=== PATIENT | male | born 1930 | race Caucasian/White ===

== ENCOUNTER 2018-01-17 21:34 | Observation (INO) | payer MEDICARE ==
[2018-01-17] MEDS ORDERED: solu-MEDROL 125 MG IV ONE (22:08)
[2018-01-17] MEDS ORDERED: Zithromax 500 MG/ 250 ML NaCl Premix 500 MG/250 ML IVPB IV STA (22:08)
[2018-01-17] MEDS ORDERED: DUONEB 0.5-3 MG/3 ml Neb IH ONE ×2 (22:08→22:18)
[2018-01-17] MEDS ORDERED: ROCEPHIN 1 Gm-D5w 50 ml Bag** 1 G/50 ML IVPB IV STA (22:08)
[2018-01-17] MEDS ORDERED: Rocephin 500 MG INJ** 500 MG in Sodium Chloride 0.9% 100 ML IVPB 100 ML IV ONE (22:08)
--- NOTE | 2018-01-17 22:21 | ERPHSYRPT ---
- History of Present Illness Time Seen by Provider: 01/17/18 22:05 Source: patient Exam Limitations: clinical condition Patient Subjective Stated Complaint: pt states he woke up short of breath and feeling weak. Triage Nursing Assessment: pt alert and oriented. answers questions approp. pt arrive per ambulance, transfer to stretcher per total assist of 3. respirations nonlabored with lungs cta. skin pink warm and dry. Physician History: PATIENT WITH A HISTORY OF COPD, ATRIAL FIBRILLATION, PRESENTLY ON ANTICOAGULANTS COUMADIN COMPLAINS OF DIFFICULTY BREATHING AND A PRODUCTIVE COUGH TONIGHT. DENIES FEVER, CHILLS, CHEST PAIN . Timing/Duration: intermittent Activities at Onset: activity Severity of Dyspnea-Max: moderate Severity of Dyspnea-Current: mild Possible Cause: occasional episodes Modifying Factors: Improves With: activity Associated Symptoms: cough, weakness, ankle swelling Allergies/Adverse Reactions: No Known Drug Allergies Allergy (Verified 01/17/18 22:08) Home Medications: Acetaminophen 325 mg [Tylenol 325 mg] 650 mg PO Q4H PRN PRN 01/17/18 [ History] Albuterol 2.5 mg/3 ml Neb [Proventil 2.5 mg/3 ml Neb] 2.5 mg IH Q4H PRN PRN 01/17/18 [History] Bisacodyl 5 mg [Dulcolax 5 mg] 5 mg PO DAILY PRN PRN 01/17/18 [History] Bismuth Subsalicylate [Pepto-Bismol] 262 mg PO BID 01/17/18 [History] Loperamide HCl 2 mg [Imodium 2 mg] 2 mg PO Q4HPRN PRN 01/17/18 [History] Losartan Potassium 50 mg [Cozaar 50 MG] 50 mg PO DAILY 01/17/18 [History] Omeprazole 20 MG [Prilosec 20 mg] 20 mg PO DAILY 01/17/18 [History] Oxybutynin Chloride Xl 5 mg [Ditropan XL 5 MG] 5 mg PO DAILY 01/17/18 [ History] Tamsulosin HCl 0.4 mg [Flomax 0.4 MG] 0.4 mg PO DAILY 01/17/18 [History] Vit A/Vit C/Vit E/Zinc/Copper [Preservision Areds Softgel] 1 each PO DAILY 01/17 [History] Warfarin Sodium 5 mg [Coumadin 5 MG] 5 mg PO DAILY 01/17/18 [History] Hx Tetanus, Diphtheria Vaccination/Date Given: Yes Hx Influenza Vaccination/Date Given: Yes Hx Pneumococcal Vaccination/Date Given: Yes Immunizations Up to Date: Yes - Review of Systems Constitutional: No Fever, No Chills Eyes: No Symptoms Ears, Nose, & Throat: No Symptoms Respiratory: Dyspnea, Dyspnea on Exertion (FRAUSTO), No Cough Cardiac: No Symptoms, No Chest Pain, No Edema, No Syncope Abdominal/Gastrointestinal: No Symptoms, No Abdominal Pain, No Nausea, No Vomiting, No Diarrhea Genitourinary Symptoms: No Symptoms, No Dysuria Musculoskeletal: No Back Pain, No Neck Pain Skin: Other (SWELLING IN LEGS), No Rash Neurological: No Dizziness, No Focal Weakness, No Sensory Changes Psychological: No Symptoms Endocrine: No Symptoms All Other Systems: Reviewed and Negative - Past Medical History Pertinent Past Medical History: Yes Cardiac History: Arrhythmia Respiratory History: COPD - Past Surgical History Past Surgical History: Yes Musculoskeletal: Joint Replacement, Orthopedic Surgery Other Surgical History: bilat knee replacements, back surgery, sinus surgery, skin graft to back - Social History Smoking Status: Former smoker Exposure to second hand smoke: No Drug Use: none Patient Lives Alone: No - Nursing Vital Signs Nursing Vital Signs: Initial Vital Signs Temperature 98.2 F 01/17/18 21:50 Pulse Rate 82 01/17/18 21:50 Respiratory Rate 18 01/17/18 21:50 Blood Pressure 137/79 01/17/18 21:50 O2 Sat by Pulse Oximetry 93 L 01/17/18 21:50 Pain Scale Pain Intensity 0 - Physical Exam General Appearance: no apparent distress, alert Eye Exam: PERRL/EOMI Neck Exam: normal inspection, supple Respiratory Exam: diminished breath sounds (NO WHEEZES OR RHONCHI) Cardiovascular/Chest Exam: normal heart sounds, regular rate/rhythm Abdominal/Gastrointestinal Exam: soft, No tenderness, No distention, No mass Extremity Exam: non-tender, normal range of motion, normal inspection, no calf tenderness, swelling (1+ PRETIBIAL EDEMA. 1+ PRESACRAL) Peripheral Pulses Exam: carotid (R): 2+, carotid (L): 2+, femoral (R): 2+, femoral (L): 2+, dorsalis-pedis (R): 2+, dorsalis-pedis (L): 2+ Neurologic Exam: alert, oriented x 3, cooperative, software design manager II-XII nml as tested, sensation nml, No motor deficits Skin Exam: normal color, warm, No dry SpO2 Interpretation: normal SpO2: 93 Oxygen Delivery: Room Air - Course EKG Interpreted by Me: RATE, Sinus Rhythm (rate of 81), NORMAL AXIS - Radiology Exams Chest X-ray Interpretation: Interpreted by me (COPD WITH INTERSTITIAL SCARRING, NO INFILTRATES) Ordered Tests: Active Orders 24 hr Category Date Time Status EKG-ER Only STAT Care 01/17/18 22:08 Active Oxygen-ED Only VENTI-MASK 35% Care 01/17/18 22:08 Active CHEST 1 VIEW (PORTABLE) Stat Exams 01/17/18 22:09 Ordered BLOOD CULTURE Stat Lab 01/17/18 22:08 Ordered CBC W DIFF Stat Lab 01/17/18 22:10 Completed CMP Stat Lab 01/17/18 22:10 Completed MAGNESIUM Stat Lab 01/17/18 22:10 Completed Manual Differential NC Stat Lab 01/17/18 22:10 Completed NT PRO BNP Stat Lab 01/17/18 22:10 Completed PROTIME WITH INR Stat Lab 01/17/18 22:10 Received TROPONIN Q3H Lab 01/17/18 22:10 Completed TROPONIN Q3H Lab 01/18/18 01:15 Ordered TROPONIN Q3H Lab 01/18/18 04:15 Ordered TROPONIN Q3H Lab 01/18/18 07:15 Ordered TROPONIN Q3H Lab 01/18/18 10:15 Ordered Respiratory Nebulizer STAT RT 01/17/18 22:11 Completed Respiratory Therapy Assessment DAILY RT 01/17/18 22:27 Active Respiratory Therapy Consult ONCE RT 01/17/18 22:27 Completed Medication Summary Generic Name Dose Route Start Last Admin Trade Name Freq PRN Reason Stop Dose Admin Ceftriaxone Sodium 500 mg/ 100 mls @ 100 mls/hr 01/17/18 22:08 Sodium Chloride IV 01/17/18 23:07 STAT ONE Azithromycin 500 mg in 250 mls @ 250 mls/hr 01/17/18 22:08 Zithromax 500 Mg/ 250 Ml Nacl Premix IV 01/17/18 23:07 STAT STA Discontinued Medications Generic Name Dose Route Start Last Admin Trade Name Sofia PRN Reason Stop Dose Admin Albuterol/Ipratropium 3 ml 01/17/18 22:08 01/17/18 22:20 Duoneb 0.5-3 Mg/3 Ml Neb IH 01/17/18 22:09 3 ml STAT ONE Administration Albuterol/Ipratropium Confirm 01/17/18 22:18 Duoneb 0.5-3 Mg/3 Ml Neb Administered 01/17/18 22:19 Dose 3 ml IH .STK-MED ONE Ceftriaxone Sodium/Dextrose 1 g in 50 mls @ 100 mls/hr 01/17/18 22:08 22:40 Rocephin 1 Gm-D5w 50 Ml Bag IV 01/17/18 22:37 100 ml/hr STAT STA 100 mls/hr Administration Azithromycin Confirm 01/17/18 22:23 Zithromax 500 Mg/ 250 Ml Nacl Premix Administered 01/17/18 22:24 Dose 500 mg in 250 mls @ ud IV .STK-MED ONE Ceftriaxone Sodium/Dextrose Confirm 01/17/18 22:23 Rocephin 1 Gm-D5w 50 Ml Bag Administered 01/17/18 22:24 Dose 1 g in 50 mls @ ud IV .STK-MED ONE Methylprednisolone Sodium Succinate 125 mg 01/17/18 22:08 01/17/18 22:40 Solu-Medrol 125 Mg IV 01/17/18 22:09 125 mg STAT ONE Administration Methylprednisolone Sodium Succinate Confirm 01/17/18 22:23 Solu-Medrol 125 Mg Administered 01/17/18 22:24 Dose 125 mg .ROUTE .STK-MED ONE Lab/Rad Data: Laboratory Result Diagrams 01/17/18 22:10 01/17/18 22:10 Laboratory Results 01/17/18 01/17/18 01/17/18 Range/Units 22:10 22:10 22:10 WBC (4.0-10.5) K/mm3 RBC (4.1-5.6) M/mm3 Hgb (12.5-18.0) gm/dl Hct (42-50) % MCV (78-100) fl MCH (26-32) pg MCHC (32-36) g/dl RDW (11.5-14.0) % Plt Count (150-450) K/mm3 MPV (6-9.5) fl Sodium 141 (137-145) mmol/L Potassium 4.3 (3.5-5.1) mmol/L Chloride 104 (98-107) mmol/L Carbon Dioxide 26 (22-30) mmol/L Anion Gap 15.5 H (5-15) MEQ/L BUN 21 H (9-20) mg/dL Creatinine 0.99 (0.66-1.25) mg/dL Estimated GFR > 60.0 ML/MIN Glucose 116 H (74-106) mg/dL Calcium 9.2 (8.4-10.2) mg/dL Magnesium 2.3 (1.6-2.3) mg/dL Total Bilirubin 0.20 (0.2-1.3) mg/dL AST 20 (17-59) U/L ALT 14 (0-50) U/L Alkaline Phosphatase 74 (38-126) U/L Troponin I < 0.012 (0.000-0.034) ng/mL NT-Pro-B Natriuret Pep 159 (0-1800) pg/mL Serum Total Protein 7.4 (6.3-8.2) g/dL Albumin 4.0 (3.5-5.0) g/dL 01/17/18 Range/Units 22:10 WBC 6.4 (4.0-10.5) K/mm3 RBC 4.53 (4.1-5.6) M/mm3 Hgb 13.4 (12.5-18.0) gm/dl Hct 42.3 (42-50) % MCV 93.4 (78-100) fl MCH 29.6 (26-32) pg MCHC 31.7 L (32-36) g/dl RDW 14.3 H (11.5-14.0) % Plt Count 195 (150-450) K/mm3 MPV 12.5 H (6-9.5) fl Sodium (137-145) mmol/L Potassium (3.5-5.1) mmol/L Chloride (98-107) mmol/L Carbon Dioxide (22-30) mmol/L Anion Gap (5-15) MEQ/L BUN (9-20) mg/dL Creatinine (0.66-1.25) mg/dL Estimated GFR ML/MIN Glucose (74-106) mg/dL Calcium (8.4-10.2) mg/dL Magnesium (1.6-2.3) mg/dL Total Bilirubin (0.2-1.3) mg/dL AST (17-59) U/L ALT (0-50) U/L Alkaline Phosphatase (38-126) U/L Troponin I (0.000-0.034) ng/mL NT-Pro-B Natriuret Pep (0-1800) pg/mL Serum Total Protein (6.3-8.2) g/dL Albumin (3.5-5.0) g/dL - Progress Progress: improved Air Movement: good Progress Note: 01/17/18 22:24 ADMINISTERED ROCEPHIN 1GM, AND ZITHROMAX 500MG IVPB, SOLUMEDROL 125MG IV, DUONEB AEROSOL 01/17/18 23:01 Discussed with : Cecil Will see patient in: hospital (observation) (DISCUSSED WITH DR CRABTREE AT 2300 FOR OBSERVATION) - Departure Time of Disposition: 23:10 Departure Disposition: Observation Clinical Impression: ACUTE EXACERBATOION COPD Condition: Stable Critical Care Time: No Referrals: MORALES DUNCAN [Primary Care Provider] -
[2018-01-17 22:22] LABS: Hematocrit 42.3 % (42-50); Hemoglobin 13.4 gm/dl (12.5-18.0); Mean Cell Volume 93.4 fl (78-100); Mean Corpuscular Hemoglobin 29.6 pg (26-32); Mean Corpuscular Hgb Concent. 31.7 g/dl (32-36); Mean Platelet Volume 12.5 fl (6-9.5); Platelet Count 195 K/mm3 (150-450); Red Blood Count 4.53 M/mm3 (4.1-5.6); Red Cell Distribution Width 14.3 % (11.5-14.0); White Blood Count 6.4 K/mm3 (4.0-10.5)
[2018-01-17] MEDS ORDERED: solu-MEDROL 125 MG ONE (22:23)
[2018-01-17] MEDS ORDERED: Zithromax 500 MG/ 250 ML NaCl Premix 500 MG/250 ML IVPB IV ONE (22:23)
[2018-01-17] MEDS ORDERED: ROCEPHIN 1 Gm-D5w 50 ml Bag** 1 G/50 ML IVPB IV ONE (22:23)
[2018-01-17 22:31] LABS: ALKALINE PHOSPHATASE 74 U/L (38-126); ANION GAP 15.5 MEQ/L (5-15); BLOOD UREA NITROGEN 21 mg/dL (9-20); CHLORIDE 104 mmol/L (98-107); Calcium 9.2 mg/dL (8.4-10.2); Carbon Dioxide 26 mmol/L (22-30); Creatinine 1 0.99 mg/dL (0.66-1.25); Glucose 116 mg/dL (74-106); Potassium 4.3 mmol/L (3.5-5.1); SGOT/AST 20 U/L (17-59); SGPT/ALT 14 U/L (0-50); SODIUM 141 mmol/L (137-145); Total Protein 7.4 g/dL (6.3-8.2)
[2018-01-17 23:13] LABS: INR 2.11 (0.8-3.0)
[2018-01-17] MEDS ORDERED: TYLENOL 325 MG PO PRN (23:17)
[2018-01-17] MEDS ORDERED: Xopenex 1.25 MG/0.5 ML UD NEBULE IH PRN (23:20)
[2018-01-18] MEDS: solu-MEDROL 125 MG IV SCH ×2 (01:39→05:38)
[2018-01-18] MEDS: DUONEB 0.5-3 MG/3 ml Neb IH SCH ×6 (03:09→22:40)
[2018-01-18 05:27] LABS: ATYPICAL LYMPHS 1 %; BAND 1 % (0.0-2.0); Basophil 1 % (0.0-1.0); Eosinophil 3 % (0.00-3.0); Lymphocytes 31 % (24-44); Monocyte 16 % (0.0-12.0); Neutrophils 47 % (36.-66.); Total Cells Counted 100
[2018-01-18 05:28] LABS: Platelet Estimate NORMAL (NORMAL)
[2018-01-18] MEDS: Sodium Chloride 0.9% 10 ML FLUSH Syringe IV SCH ×2 (06:00→22:02)
[2018-01-18 06:11] LABS: BLOOD UREA NITROGEN 20 mg/dL (9-20); CHLORIDE 104 mmol/L (98-107); Calcium 8.9 mg/dL (8.4-10.2); Carbon Dioxide 25 mmol/L (22-30); Glucose 187 mg/dL (74-106); Potassium 4.4 mmol/L (3.5-5.1); SODIUM 139 mmol/L (137-145)
--- NOTE | 2018-01-18 08:24 | PCM.HP ---
History of Present Illness - Chief Complaint Chief Complaint: Shortness of Breath Date: 01/19/18 History of Present Illness: is a 87 year old male. who presented from [facility] he has had several exacerbations of copd with bronchitis but was having worsening coughing and pain in the chest overnight and unrelenting and was sent for evaluation in ED. This am he is eating and feeling better now. Still has the coughing. Denies chest pain now. Denies nausea vomiting or abdominal pain. - Review of Systems Constitutional: No Fever, No Chills Eyes: No Symptoms Ears, Nose, & Throat: No Symptoms Respiratory: Cough, No Short Of Breath Cardiac: No Chest Pain, No Edema, No Syncope Abdominal/Gastrointestinal: No Abdominal Pain, No Nausea, No Vomiting, No Diarrhea Genitourinary Symptoms: No Dysuria Musculoskeletal: No Back Pain, No Neck Pain Skin: No Rash Neurological: No Dizziness, No Focal Weakness, No Sensory Changes Psychological: No Symptoms Endocrine: No Symptoms Hematologic/Lymphatic: No Symptoms Immunological/Allergic: No Symptoms Medications & Allergies Home Medications: Home Medication List Acetaminophen 325 mg [Tylenol 325 mg] 650 mg PO Q4H PRN PRN 01/17/18 [ History Confirmed 01/17/18] Bisacodyl 5 mg [Dulcolax 5 mg] 5 mg PO DAILY PRN PRN 01/17/18 [History Confirmed 01/17/18] Bismuth Subsalicylate [Pepto-Bismol] 262 mg PO BID 01/17/18 [History Confirmed 01/17/18] Loperamide HCl 2 mg [Imodium 2 mg] 2 mg PO Q4HPRN PRN 01/17/18 [History Confirmed 01/17/18] Omeprazole 20 MG [Prilosec 20 mg] 20 mg PO DAILY 01/17/18 [History Confirmed ] Oxybutynin Chloride Xl 5 mg [Ditropan XL 5 MG] 5 mg PO DAILY 01/17/18 [ History Confirmed 01/17/18] Tamsulosin HCl 0.4 mg [Flomax 0.4 MG] 0.4 mg PO DAILY 01/17/18 [History Confirmed 01/17/18] Vit A/Vit C/Vit E/Zinc/Copper [Preservision Areds Softgel] 1 each PO DAILY 01/17 [History Confirmed 01/17/18] Warfarin Sodium 5 mg [Coumadin 5 MG] 5 mg PO DAILY 01/17/18 [History Confirmed 01/17/18] Albuterol 2.5 mg/3 ml Neb [Proventil 2.5 mg/3 ml Neb] 2.5 mg IH QID #0 [Rx Confirmed 01/17/18] Cefdinir [Omnicef] 300 mg PO BID 6 Days #12 capsule 01/19/18 [Rx] Prednisone 20 mg [Deltasone 20 mg] 40 mg PO UD #17 tablet 01/19/18 [Rx] Allergies/Adverse Reactions: Allergies Allergy/AdvReac Type Severity Reaction Status Date / Time No Known Drug Allergies Allergy Verified 01/17/18 22:08 - Past Medical History Past Medical History: Yes Neurological History: Dementia Cardiac History: Arrhythmia, Hypertension Respiratory History: COPD - Past Surgical History Past Surgical History: Yes Musculskeletal Surgical Hx: Joint Replacement, Orthopedic Surgery Other Surgical History: bilat knee replacements, back surgery, sinus surgery, skin graft to back - Social History Smoking Status: Former smoker Exposure to second hand smoke: No Alcohol: None Drug Use: none - Physical Exam Vital Signs: Vital Signs - 24 hr Temp Pulse Resp BP Pulse Ox 01/18/18 07:51 98.4 F 98 H 19 126/72 94 L 01/18/18 07:12 110 H 20 95 01/18/18 04:20 98.5 F 93 H 22 118/67 92 L 01/18/18 04:00 22 01/18/18 03:09 80 20 93 L 01/18/18 00:33 97.9 F 89 22 123/58 91 L 01/17/18 23:15 91 L 01/17/18 23:09 93 L 01/17/18 22:48 87 16 132/82 93 L 01/17/18 22:28 79 20 95 01/17/18 21:50 98.2 F 82 20 137/79 93 L Oxygen-Last 24 hours O2 Percentage 4 Liters = 36% O2 Percentage 4 Liters = 36% General Appearance: no apparent distress, alert, obese Neurologic Exam: alert, cooperative, normal mood/affect, nml cerebellar function , nml station & gait, sensation nml, other (not oriented to time is oriented to person and place), No motor deficits Eye Exam: PERRL/EOMI, eyes nml inspection Ears, Nose, Throat Exam: normal ENT inspection, TMs normal, pharynx normal, moist mucous membranes Neck Exam: normal inspection, non-tender, supple, full range of motion Respiratory Exam: normal breath sounds, lungs clear, No respiratory distress Cardiovascular Exam: regular rate/rhythm, normal heart sounds, normal peripheral pulses Gastrointestinal/Abdomen Exam: soft, normal bowel sounds, No tenderness, No mass Back Exam: normal inspection, normal range of motion, No CVA tenderness, No vertebral tenderness Extremity Exam: normal inspection, normal range of motion, pelvis stable Skin Exam: normal color, warm, dry, No rash Lymphatic Exam: No adenopathy Results - Labs Lab/Micro Results: Lab Results-Last 24 Hours 01/17/18 01/17/18 01/17/18 Range/Units 22:10 22:10 22:10 WBC 6.4 (4.0-10.5) K/mm3 RBC 4.53 (4.1-5.6) M/mm3 Hgb 13.4 (12.5-18.0) gm/dl Hct 42.3 (42-50) % MCV 93.4 (78-100) fl MCH 29.6 (26-32) pg MCHC 31.7 L (32-36) g/dl RDW 14.3 H (11.5-14.0) % Plt Count 195 (150-450) K/mm3 MPV 12.5 H (6-9.5) fl Segmented Neutrophils 47 (36.-66.) % Band Neutrophils 1 (0.0-2.0) % Lymphocytes (Manual) 31 (24-44) % Monocytes (Manual) 16 H (0.0-12.0) % Eosinophils (Manual) 3 (0.00-3.0) % Basophils (Manual) 1 (0.0-1.0) % Atypical Lymphocytes 1 % Platelet Estimate NORMAL (NORMAL) RBC Morphology NORMAL PT 24.7 H (8.83-12.87) SECONDS INR 2.11 (0.8-3.0) Sodium (137-145) mmol/L Potassium (3.5-5.1) mmol/L Chloride (98-107) mmol/L Carbon Dioxide (22-30) mmol/L Anion Gap (5-15) MEQ/L BUN (9-20) mg/dL Creatinine (0.66-1.25) mg/dL Estimated GFR ML/MIN Glucose (74-106) mg/dL Calcium (8.4-10.2) mg/dL Magnesium 2.3 (1.6-2.3) mg/dL Total Bilirubin (0.2-1.3) mg/dL AST (17-59) U/L ALT (0-50) U/L Alkaline Phosphatase (38-126) U/L Troponin I (0.000-0.034) ng/mL NT-Pro-B Natriuret Pep 159 (0-1800) pg/mL Serum Total Protein (6.3-8.2) g/dL Albumin (3.5-5.0) g/dL 01/17/18 01/17/18 01/18/18 Range/Units 22:10 22:10 01:10 WBC (4.0-10.5) K/mm3 RBC (4.1-5.6) M/mm3 Hgb (12.5-18.0) gm/dl Hct (42-50) % MCV (78-100) fl MCH (26-32) pg MCHC (32-36) g/dl RDW (11.5-14.0) % Plt Count (150-450) K/mm3 MPV (6-9.5) fl Segmented Neutrophils (36.-66.) % Band Neutrophils (0.0-2.0) % Lymphocytes (Manual) (24-44) % Monocytes (Manual) (0.0-12.0) % Eosinophils (Manual) (0.00-3.0) % Basophils (Manual) (0.0-1.0) % Atypical Lymphocytes % Platelet Estimate (NORMAL) RBC Morphology PT (8.83-12.87) SECONDS INR (0.8-3.0) Sodium 141 (137-145) mmol/L Potassium 4.3 (3.5-5.1) mmol/L Chloride 104 (98-107) mmol/L Carbon Dioxide 26 (22-30) mmol/L Anion Gap 15.5 H (5-15) MEQ/L BUN 21 H (9-20) mg/dL Creatinine 0.99 (0.66-1.25) mg/dL Estimated GFR > 60.0 ML/MIN Glucose 116 H (74-106) mg/dL Calcium 9.2 (8.4-10.2) mg/dL Magnesium (1.6-2.3) mg/dL Total Bilirubin 0.20 (0.2-1.3) mg/dL AST 20 (17-59) U/L ALT 14 (0-50) U/L Alkaline Phosphatase 74 (38-126) U/L Troponin I < 0.012 < 0.012 (0.000-0.034) ng/mL NT-Pro-B Natriuret Pep (0-1800) pg/mL Serum Total Protein 7.4 (6.3-8.2) g/dL Albumin 4.0 (3.5-5.0) g/dL 01/18/18 01/18/18 01/18/18 Range/Units 05:10 05:10 07:33 WBC (4.0-10.5) K/mm3 RBC (4.1-5.6) M/mm3 Hgb (12.5-18.0) gm/dl Hct (42-50) % MCV (78-100) fl MCH (26-32) pg MCHC (32-36) g/dl RDW (11.5-14.0) % Plt Count (150-450) K/mm3 MPV (6-9.5) fl Segmented Neutrophils (36.-66.) % Band Neutrophils (0.0-2.0) % Lymphocytes (Manual) (24-44) % Monocytes (Manual) (0.0-12.0) % Eosinophils (Manual) (0.00-3.0) % Basophils (Manual) (0.0-1.0) % Atypical Lymphocytes % Platelet Estimate (NORMAL) RBC Morphology PT (8.83-12.87) SECONDS INR (0.8-3.0) Sodium 139 (137-145) mmol/L Potassium 4.4 (3.5-5.1) mmol/L Chloride 104 (98-107) mmol/L Carbon Dioxide 25 (22-30) mmol/L Anion Gap 14.0 (5-15) MEQ/L BUN 20 (9-20) mg/dL Creatinine 0.90 (0.66-1.25) mg/dL Estimated GFR > 60.0 ML/MIN Glucose 187 H (74-106) mg/dL Calcium 8.9 (8.4-10.2) mg/dL Magnesium (1.6-2.3) mg/dL Total Bilirubin (0.2-1.3) mg/dL AST (17-59) U/L ALT (0-50) U/L Alkaline Phosphatase (38-126) U/L Troponin I < 0.012 < 0.012 (0.000-0.034) ng/mL NT-Pro-B Natriuret Pep (0-1800) pg/mL Serum Total Protein (6.3-8.2) g/dL Albumin (3.5-5.0) g/dL - Radiology Impressions Radiology Exams & Impressions: Radiology Procedures Category Date Time Status CHEST 1 VIEW (PORTABLE) Stat Exams 01/17/18 22:09 Taken - Other Procedures and Tests Respiratory Therapy 01/17/18 22:27 Respiratory Therapy Assessment DAILY 01/17/18 23:10 Oxygen NASAL CANNULA 2 lpm 01/18/18 07:12 Peak Expiratory Flow Rate ONCE Assessment/Plan (1) COPD exacerbation Status: Acute Onset Date: ~01/17/18 Assessment & Plan: improving after ceftriaxone and the iv steroids will try to wean to po steroids continue the antibiotic continue scheduled duonebs therapuetic on the inr monitor on the antibiotic closely. Code(s): J44.1 - CHRONIC OBSTRUCTIVE PULMONARY DISEASE W (ACUTE) EXACERBATION (2) Chronic atrial fibrillation Status: Chronic Code(s): I48.2 - CHRONIC ATRIAL FIBRILLATION (3) Obesity Status: Chronic Code(s): E66.9 - OBESITY, UNSPECIFIED (4) Dementia Status: Chronic Code(s): F03.90 - UNSPECIFIED DEMENTIA WITHOUT BEHAVIORAL DISTURBANCE (5) BPH (benign prostatic hyperplasia) Status: Chronic Code(s): N40.0 - BENIGN PROSTATIC HYPERPLASIA WITHOUT LOWER URINRY TRACT SYMP
--- NOTE | 2018-01-18 08:46 | XRAY ---
Indication: Dyspnea. Comparison: January 09, 2017. Portable apical lordotic chest underinflated again with bibasilar atelectasis/scarring. No focal infiltrate, consolidation, or large effusion. Heart is not enlarged. Stable hiatal hernia. Bony thorax intact again with mild degenerative changes. Impression: Nonacute underinflated chest with chronic features.
[2018-01-18] MEDS ORDERED: PROVENTIL 2.5 MG/3 ML NEB IH PRN (08:48)
[2018-01-18] MEDS ORDERED: DULCOLAX 5 MG PO PRN (08:48)
[2018-01-18] MEDS ORDERED: VIT E PO SCH (10:00)
[2018-01-18] MEDS ORDERED: NON-FORMULARY ITEM (Omeprazole 20 Mg [Prilosec 20 Mg] 20 MG) PO SCH (10:00)
[2018-01-18] MEDS ORDERED: ZINC PO SCH (10:00)
[2018-01-18] MEDS ORDERED: VIT A PO SCH (10:00)
[2018-01-18] MEDS ORDERED: COPPER PO SCH (10:00)
[2018-01-18] MEDS ORDERED: VIT C PO SCH (10:00)
[2018-01-18] MEDS: DELTASONE 20 MG PO SCH (10:27)
[2018-01-18] MEDS: Protonix 40MG Tablet PO SCH (10:27)
[2018-01-18] MEDS: Ocuvite Tablet PO SCH (10:27)
[2018-01-18] MEDS: Ditropan XL 5 MG PO SCH (10:27)
[2018-01-18] MEDS: Pepcid 20 MG PO SCH ×2 (10:27→22:00)
[2018-01-18] MEDS: Cozaar 50 MG PO SCH (10:27)
[2018-01-18] MEDS: Flomax 0.4 MG PO SCH (10:27)
[2018-01-18] MEDS: Pepto-Bismol PO SCH (10:28)
[2018-01-18] MEDS ORDERED: Coumadin 5 MG PO SCH (18:00)
[2018-01-18] MEDS ORDERED: ROCEPHIN 1 Gm-D5w 50 ml Bag** 1 G/50 ML IVPB IV SCH (22:00)
[2018-01-19] MEDS: DUONEB 0.5-3 MG/3 ml Neb IH SCH ×4 (03:07→14:33)
[2018-01-19] MEDS: Sodium Chloride 0.9% 10 ML FLUSH Syringe IV SCH ×2 (05:05→09:35)
--- NOTE | 2018-01-19 08:36 | XRAY ---
Indication: Congestion. Coughing. Possible aspiration. Comparison: One day earlier. Portable chest unchanged again slightly underinflated with bibasilar discoid atelectasis/scarring. Heart is not enlarged. Stable hiatal hernia. No new/acute findings.
[2018-01-19] MEDS: DELTASONE 20 MG PO SCH (09:35)
[2018-01-19] MEDS: Protonix 40MG Tablet PO SCH (09:35)
[2018-01-19] MEDS: Pepcid 20 MG PO SCH (09:35)
[2018-01-19] MEDS: Cozaar 50 MG PO SCH (09:35)
[2018-01-19] MEDS: Flomax 0.4 MG PO SCH (09:35)
[2018-01-19] MEDS: Ocuvite Tablet PO SCH (09:35)
[2018-01-19] MEDS: Ditropan XL 5 MG PO SCH (09:35)
[2018-01-19] MEDS: Pepto-Bismol PO SCH ×2 (09:36→10:01)
[2018-01-19 12:16] VITALS: BP 119/78; O2SAT 93
--- NOTE | 2018-01-19 12:24 | PCM.DCORD ---
- Discharge Discharge Date: 01/19/18 Disposition: DC TO [facility] Condition: Fair Prescriptions: New Prednisone 20 mg [Deltasone 20 mg] 40 mg PO UD #17 tablet Cefdinir [Omnicef] 300 mg PO BID 6 Days #12 capsule Continue Loperamide HCl 2 mg [Imodium 2 mg] 2 mg PO Q4HPRN PRN PRN Reason: Diarrhea Bisacodyl 5 mg [Dulcolax 5 mg] 5 mg PO DAILY PRN PRN PRN Reason: Constipation Warfarin Sodium 5 mg [Coumadin 5 MG] 5 mg PO DAILY Tamsulosin HCl 0.4 mg [Flomax 0.4 MG] 0.4 mg PO DAILY Vit A/Vit C/Vit E/Zinc/Copper [Preservision Areds Softgel] 1 each PO DAILY Oxybutynin Chloride Xl 5 mg [Ditropan XL 5 MG] 5 mg PO DAILY Bismuth Subsalicylate [Pepto-Bismol] 262 mg PO BID Omeprazole 20 MG [Prilosec 20 mg] 20 mg PO DAILY Acetaminophen 325 mg [Tylenol 325 mg] 650 mg PO Q4H PRN PRN PRN Reason: Pain Changed Albuterol 2.5 mg/3 ml Neb [Proventil 2.5 mg/3 ml Neb] 2.5 mg IH QID #0 Discontinued Losartan Potassium 50 mg [Cozaar 50 MG] 50 mg PO DAILY Additional Instructions: Resume the previous fpc orders with exception of the medication changes check PT/INR 01/21/2018 Speech therapy to evaluate and treat for chronic coughing with feeding Follow up with: MORALES DUNCAN [Primary Care Provider] - 1 Week
[2018-01-19 14:39] VITALS: PULSE 80
--- NOTE | 2018-01-19 16:48 | PCM.DS ---
Discharge Summary Date of Admission: 01/17/18 23:57 Date of Discharge: 01/19/18 Admitting Physician: DARLEEN CRABTREE Primary Care Provider: MORALES DUNCAN Allergies Allergies No Known Drug Allergies Allergy (Verified 01/17/18 22:08) Hospital Summary - Hospital Course Hospital Course: presented with increased coughing productive of clear sputum and shortness of breath with coughing resulting in chest pain. Serial troponins were negative he has chronic atrial fibrillation and therapeutic inr. He was treated with iv steroids, ceftriaxone and scheduled duonebs. He had improvement in symptoms but persistent cough productive of clear sputum and persistent oxygen requirement. He is feeling better however and is worried about his . [facility] He is not able to tell me where they are living right now but does know he is afraid she is worrying about him and wants to go home now. He is improving and tolerated the prednisone. will d/c back to [facility] and have ST due swallow evaluation there as well as will trial off the losartan as bp has intermittently been lower and see if this helps any with the cough. He will continue prednisone taper and antibiotic. monitor inr check in 2 days. - Vitals & Intake/Output Vital Signs: Vital Signs Temperature 98.3 F 01/19/18 12:00 Pulse Rate 80 01/19/18 14:34 Respiratory Rate 18 01/19/18 14:34 Blood Pressure 119/78 01/19/18 12:00 O2 Sat by Pulse Oximetry 93 L 01/19/18 12:00 Oxygen-Last Documented O2 Percentage 2 Liters = 28% Intake & Output: Intake & Output 01/17/18 01/18/18 01/19/18 01/20/18 11:59 11:59 11:59 11:59 Intake Total 660 3627 Output Total 1020 Balance 660 2607 Weight 113.5 kg 115 kg - Lab Result Diagrams: 01/17/18 22:10 01/18/18 05:10 Micro Results-Entire Visit: Microbiology 01/17/18 22:54 Blood Culture - Preliminary Blood NO GROWTH TO DATE 01/17/18 22:10 Blood Culture - Preliminary Blood NO GROWTH TO DATE - Radiology Exams Ordered Rad Exams-Entire Visit: Radiology Procedures Category Date Time Status CHEST 1 VIEW (PORTABLE) Stat Exams 01/17/18 22:09 Completed CHEST 1 VIEW (PORTABLE) Stat Exams 01/18/18 17:33 Completed - Procedures and Test Procedures and Tests throughout Hospitalization: Therapy Orders & Screens 01/17/18 22:11 Respiratory Nebulizer STAT Comment: Diagnosis: Shortness of Breath 01/17/18 22:27 Respiratory Therapy Assessment DAILY Comment: Diagnosis: Shortness of Breath Respiratory Therapy Consult ONCE Comment: Reason For Exam: Diagnosis: Shortness of Breath 01/17/18 23:10 Oxygen NASAL CANNULA 2 lpm Comment: Diagnosis: Shortness of Breath 01/18/18 01:12 PT Screen per Nursing Assess ONCE Comment: Protocol Order Physician Instructions: Greater than 3 points order PT Admission Screenin Reason For Exam: Triggered on Admission Diagnosis: Shortness of Breath Open Wound/Cellutlitis/Pressure Ulcers: No Acute Fx/ORIF/Change in wt bearing status: No Severe MUSCULOSKELETAL pain: No ADL Dysfunction: Yes Acute CVA w/Hemiparesis/Hemiplegia: No Decreased Functional Mobility/Strength: Yes Sprain/Strain: No Acute Post-op Mobility Dysfunction: No Total Points: 4 01/18/18 07:12 Peak Expiratory Flow Rate ONCE Comment: Reason For Exam: Diagnosis: Shortness of Breath Discharge Exam General Appearance: no apparent distress, alert, obese Neurologic Exam: alert, oriented x 3, cooperative, normal mood/affect, nml cerebellar function, sensation nml, No motor deficits Skin Exam: normal color, warm, dry Eye Exam: PERRL, EOMI, eyes nml inspection Ears, Nose, Throat Exam: normal ENT inspection, pharynx normal, moist mucous membranes Neck Exam: normal inspection, non-tender, supple, full range of motion Respiratory Exam: rhonchi, No respiratory distress Cardiovascular Exam: regular rate/rhythm, normal heart sounds Gastrointestinal/Abdomen Exam: soft, No tenderness, No mass Extremity Exam: normal inspection, normal range of motion Back Exam: normal inspection, normal range of motion, No CVA tenderness, No vertebral tenderness Male Genitalia Exam: deferred Rectal Exam: deferred Final Diagnosis/Problem List - Final Discharge Diagnosis/Problem (1) COPD exacerbation Status: Acute Onset Date: ~01/17/18 (2) Chronic atrial fibrillation Status: Chronic (3) Obesity Status: Chronic (4) Dementia Status: Chronic (5) BPH (benign prostatic hyperplasia) Status: Chronic (6) Chronic hypoxemic respiratory failure Status: Chronic - Discharge Discharge Date: 01/19/18 Disposition: DC TO [facility] Condition: Fair Prescriptions: New Prednisone 20 mg [Deltasone 20 mg] 40 mg PO UD #17 tablet Cefdinir [Omnicef] 300 mg PO BID 6 Days #12 capsule Continue Loperamide HCl 2 mg [Imodium 2 mg] 2 mg PO Q4HPRN PRN PRN Reason: Diarrhea Bisacodyl 5 mg [Dulcolax 5 mg] 5 mg PO DAILY PRN PRN PRN Reason: Constipation Warfarin Sodium 5 mg [Coumadin 5 MG] 5 mg PO DAILY Tamsulosin HCl 0.4 mg [Flomax 0.4 MG] 0.4 mg PO DAILY Vit A/Vit C/Vit E/Zinc/Copper [Preservision Areds Softgel] 1 each PO DAILY Oxybutynin Chloride Xl 5 mg [Ditropan XL 5 MG] 5 mg PO DAILY Bismuth Subsalicylate [Pepto-Bismol] 262 mg PO BID Omeprazole 20 MG [Prilosec 20 mg] 20 mg PO DAILY Acetaminophen 325 mg [Tylenol 325 mg] 650 mg PO Q4H PRN PRN PRN Reason: Pain Changed Albuterol 2.5 mg/3 ml Neb [Proventil 2.5 mg/3 ml Neb] 2.5 mg IH QID #0 Discontinued Losartan Potassium 50 mg [Cozaar 50 MG] 50 mg PO DAILY Instructions: Chronic Obstructive Pulmonary Disease (COPD), Including Emphysema Additional Instructions: [facility] with exception of the medication changes check PT/INR 01/21/2018 Speech therapy to evaluate and treat for chronic coughing with feeding Follow up with: MORALES DUNCAN [Primary Care Provider] - 1 Week Forms: Ambulance Transport Record, Transfer Record [facility]
== END 2018-01-19 15:15 ==
LOC: ED 21:34 → MED SURG 23:57
PROVIDERS: ADMIT Family Medicine; ATTEND Family Medicine
DX: J44.1 Chronic obstructive pulmonary disease with (acute) exacerbation (principal); I48.2 Chronic atrial fibrillation; E66.9 Obesity, unspecified; F03.90 Unspecified dementia, unspecified severity, without behavioral disturbance, psychotic disturbance, mood disturbance, and anxiety; N40.0 Benign prostatic hyperplasia without lower urinary tract symptoms; I10 Essential (primary) hypertension; Z79.01 Long term (current) use of anticoagulants; Z79.899 Other long term (current) drug therapy
CPT/HCPCS: 36415; 71045; 80048; 80053; 83735; 83880; 84484; 85025; 85610; 87040; 93005; 93268; 94150; 94640; 94762; 96365; 96367; 96374; 99285; J0456; J0696; J2930; A9270-GY; G0378